=== PATIENT | female | born 1965 | race Caucasian/White ===

== ENCOUNTER 2017-03-16 11:21 | Outpatient (CLI) | payer OTHER ==
[~2017-03-16 11:21] MED LIST: BUTALBITAL-ASA1 EAC1 PO; FIORICET1 EA ORAL; IBUPROFEN800 MG ORAL; MEDROL DOSEPAK4 MG ORAL; TRAMADOL HCL50 MG ORAL
--- NOTE | 2017-03-17 10:30 | Diagnostic Imaging Report ---
Indication: Reason For Exam: PAIN Technique: MRI of the left knee performed utilizing axial PD fat sat, sagittal PD, sagittal PD fat-sat, coronal T1, coronal PD fat sat, and coronal STIR images. Comparison: None. Findings: There is considerable artifact anteriorly from hardware in the patella. There appears to be thickening of the quadriceps tendon and patellar tendons. The cartilage of the patella and patellofemoral joint cannot be adequately evaluated due to the radial frequency artifact present. The medial meniscus is normal. There is a minimal amount of signal in the free edge of the midportion of the lateral meniscus. The anterior and posterior cruciate ligaments are intact. The collateral ligaments are grossly normal. There is increased signal in the anterior tibia but this may be due to artifact from the hardware in the patella. No significant knee effusion. Remainder the study is unremarkable. Impression: Hardware in the patella degrading the study with radiofrequency artifact. Thickening of the outer subcentimeter patellar tendons. Tiny free edge tear in the midportion of the lateral meniscus. Otherwise negative.
== END 2017-03-16 13:21 | disposition home or self-care (01) ==
LOC: MRI 11:21
DX: M22.42 Chondromalacia patellae, left knee (principal); S83.282A Other tear of lateral meniscus, current injury, left knee, initial encounter; X58.XXXA Exposure to other specified factors, initial encounter; Y93.9 Activity, unspecified; Y92.9 Unspecified place or not applicable

== ENCOUNTER 2017-06-08 03:01 | Emergency (ER) | payer SELFPAY ==
[~2017-06-08] VITALS: Ht 162.6 cm; Wt 58.5 kg
[2017-06-08] MEDS ORDERED: ATORVASTATIN CA40 MG ORAL (03:10)
[2017-06-08] MEDS ORDERED: SERTRALINE HCL50 MG ORAL (03:10)
[2017-06-08] MEDS ORDERED: NORCO 5-325 TA1 EACH ORAL (03:10)
[2017-06-08] MEDS ORDERED: LORAZEPAM1 MG ORAL (03:10)
[2017-06-08 03:12] VITALS: BP 114/74
[2017-06-08] MEDS ORDERED: IBUPROFEN600 MG ORAL (03:39)
[2017-06-08] MEDS ORDERED: ROBAXIN-750750 MG PO (03:39)
[2017-06-08] MEDS ORDERED: Ketorolac 30mg Inj IM ONE (03:45)
[2017-06-08 03:49] VITALS: BP 114/74
--- NOTE | 2017-06-08 05:56 | Emergency Room Report ---
History of Present Illness General Chief Complaint: Pain Source: Patient Present Illness HPI 51-year-old female presents ED complaining of right shoulder pain 3 weeks. Denies injury. States it is difficult to sleep. Pain is 7 out of 10, dull, radiating down her ribs. Denies chest pain or shortness of breath. No other aggravating relieving factors. Denies any other associated symptoms Allergies: Coded Allergies: No Known Allergies (Unverified , 10/28/12) Patient History Past Medical History: psych hx Past Surgical History: none Pertinent Family History: none Social History: Denies: smoking, alcohol use, drug use Now: No : 1 Para: 1 Immunizations: UTD Reviewed Nursing Documentation: PMH: Agreed; PSxH: Agreed Nursing Documentation-PMH Hx Gastrointestinal Problems: No - PARTIAL HYSTERECTOMY History Of Psychiatric Problem: Yes - anxiety Review of Systems All Other Systems: negative except mentioned in HPI Physical Exam Vital Signs Date Time Temp Pulse Resp B/P (MAP) Pulse Ox O2 Delivery O2 Flow Rate FiO2 06/08/17 03:05 98.3 81 14 114/74 97 Room Air 98.2 Sp02 EP Interpretation: reviewed, normal General Appearance: no apparent distress, alert, GCS 15, non-toxic Head: normocephalic Eyes: bilateral eye normal inspection, bilateral eye PERRL ENT: normal ENT inspection Neck: full range of motion, no bony tend, supple/symm/no masses Respiratory: lungs clear, normal breath sounds, speaking full sentences, other - R sided rib pain Cardiovascular #1: regular rate, rhythm, no edema Gastrointestinal: normal inspection Rectal: deferred Genitourinary: no CVA tenderness Musculoskeletal: tender - R paraspinal thoracic pain Neurologic: alert, oriented x3, responsive, motor strength/tone normal, sensory intact, speech normal Psychiatric: normal inspection Skin: normal inspection Lymphatic: normal inspection Medical Decision Making Diagnostic Impression: Primary Impression: Muscle strain ER Course Hospital Course 51-year-old female presents ED complaining of shoulder pain. No trauma Differential diagnoses include: fracture, dislocation, contusion Clinical course Patient placed on stretcher. After initial history, physical exam reveals female in no acute distress. There is full range of motion in the right shoulder. No crepitus or bruising. No deformity. There is paraspinal thoracic pain just medial to the shoulder blade. Pain also noted to the right lateral ribs. Pain is likely muscular. No bruising or crepitus. Discussed findings with patient. Recommend anti-inflammatories and muscle relaxers. Given Toradol here Diagnosis - muscle strain Stable and discharged to home with prescription for Motrin, Robaxin. Followup with PMD. Return to ED if symptoms recur or worsen Last Vital Signs Date Time Temp Pulse Resp B/P (MAP) Pulse Ox O2 Delivery O2 Flow Rate FiO2 06/08/17 03:49 98.2 81 14 114/74 97 06/08/17 03:12 Room Air Status: improved Disposition: HOME, SELF-CARE Condition: Stable Scripts Methocarbamol* (ROBAXIN-750*) 750 Mg Tablet 750 MG PO TID, #21 TAB 0 Refills Prov: Clint Rajan MD 06/08/17 Ibuprofen* (MOTRIN*) 600 Mg Tablet 600 MG ORAL Q8H PRN for For Pain, #30 TAB 0 Refills Prov: Clint Rajan MD 06/08/17 Patient Instructions: Muscle Strain, [id number] Clint Rajan MD Jun 08, 2017 05:56
== END 2017-06-08 03:49 | disposition home or self-care (01) ==
LOC: EMR 03:23
DX: S46.911A Strain of unspecified muscle, fascia and tendon at shoulder and upper arm level, right arm, initial encounter (principal); X58.XXXA Exposure to other specified factors, initial encounter; Y92.9 Unspecified place or not applicable; F41.9 Anxiety disorder, unspecified; Z90.710 Acquired absence of both cervix and uterus
CPT/HCPCS: 96372; 99284; J1885